=== PATIENT | female | born 1950 | race Caucasian/White ===

== ENCOUNTER 2017-05-31 06:57 | Day surgery (SDC) | payer OTHER ==
[~2017-05-31] VITALS: Ht 165.1 cm; Wt 55.4 kg
[2017-05-31] MEDS ORDERED: WARF-18 PO (07:36)
[2017-05-31] MEDS ORDERED: WARF-23 PO (07:36)
[2017-05-31 07:37] VITALS: BP 174/83; PULSE 69; RESP 18; TEMP 98.2; O2SAT 97
[2017-05-31] MEDS ORDERED: VITA10002 PO (07:37)
[2017-05-31] MEDS ORDERED: VITA100T65 PO (07:37)
[2017-05-31 09:09] LABS: BICARBONATE 28.1 MEQ/L (21.0-32.0); CALCIUM 9.2 MG/DL (8.5-10.1); CREATININE 1.11 MG/DL (0.50-1.00)
[2017-05-31] MEDS ORDERED: HEPARIN-NS/PF FLUSH BAG 1,000 ML IV FLUSH ONE (09:18)
[2017-05-31] MEDS ORDERED: ONDANSETRON HCL 4 MG/2 ML VIAL ONE (09:18)
[2017-05-31] MEDS ORDERED: MIDAZOLAM HCL 2 MG/2 ML VIAL ONE ×2 (09:18→09:33)
--- NOTE | 2017-05-31 09:18 | HHI.HP ---
History of Present Illness Chief Complaint: L LE swelling History of Present Illness 66 yo female w L LE swelling, worsening over the year. No wounds and no DVT. Past/Family/Social History Past Medical History endometriosis Past Surgical History JANI with resection of endometrial disease Social History nonsmoker Family History NC Home Medications Reported Medications Vitamin E (Vitamin E) 100 Unit Tab, 100 UNITS PO DAILY for Nutritional Supplement, TAB 0 Refills 05/31/17 Cyanocobalamin (Vitamin B-12) 1,000 Mcg Tab, 1000 MCG PO DAILY for Nutritional Supplement, #1 BOTTLE 0 Refills 05/31/17 Warfarin (Warfarin) 5 Mg Tab, 5 MG PO DAILY for Blood Clot Prevention, #30 TAB 0 Refills 05/31/17 Warfarin (Warfarin) 2.5 Mg Tab, 2.5 MG PO 2XWEEK for Blood Clot Prevention, #30 TAB 0 Refills 05/31/17 Coded Allergies: ciprofloxacin (Verified Allergy, Unknown, 05/31/17) Review of Systems Constitutional: DENIES: Diaphoretic episodes, Fatigue, Fever, Weight gain, Weight loss, Chills, Dizziness, Change in appetite, Night Sweats Cardiovascular: DENIES: Chest pain, Palpitations, Syncope, Dyspnea on Exertion , PND, Lower Extremity Edema, Orthopnea, Claudication Physical Exam Vitals/I&O Date Time Temp Pulse Resp B/P (MAP) Pulse Ox O2 Delivery O2 Flow Rate FiO2 05/31/17 07:37 98.2 69 18 174/83 (113) 97 Neuro: alert, oriented, no distress HEENT: NC/AT Neck: no JVD Heart: reg rate, no M Lungs: clear B Vascular: palpable pulses Extremities: L LE modestly swollen Laboratory Tests Test 05/31/17 07:30 Blood Urea Nitrogen 19 Creatinine 1.11 Random Glucose 89 Calcium Level 9.2 Sodium Level 141 Potassium Level 3.7 Chloride Level 105 Carbon Dioxide Level 28.1 Anion Gap 8 Estimat Glomerular Filtration Rate 49 CT A/P reviewed - potential L iliac vein stenosis Caprini VTE Risk Assessment Caprini VTE Risk Assessment: No/Low Risk (score <= 1) Caprini Risk Assessment Model Point Value = 1 Point Value = 2 Point Value = 3 Point Value = 5 Age 41-60 Minor surgery BMI > 25 kg/m2 Swollen legs Varicose veins or History of unexplained or recurrent spontaneous Oral contraceptives or hormone replacement Sepsis (< 1 month) Serious lung disease, including pneumonia (< 1 month) Abnormal pulmonary function Acute myocardial infarction Congestive heart failure (< 1 month) History of inflammatory bowel disease Medical patient at bed rest Age 61-74 Arthroscopic surgery Major open surgery (> 45 min) Laparoscopic surgery (> 45 min) Malignancy Confined to bed (> 72 hours) Immobilizing plaster cast Central venous access Age >= 75 History of VTE Family history of VTE Factor V Leiden Prothrombin [id number] Lupus anticoagulant Anticardiolipin antibodies Elevated serum homocysteine Heparin-induced thrombocytopenia Other congenital or acquired thrombophilia Stroke (< 1 month) Elective arthroplasty Hip, pelvis, or leg fracture Acute spinal cord injury (< 1 month) Prophylaxis Regimen Total Risk Factor Score Risk Level Prophylaxis Regimen 0-1 Low Early ambulation 2 Moderate Order ONE of the following: *Sequential Compression Device (SCD) *Heparin 5000 units SQ BID 3-4 Higher Order ONE of the following medications: *Heparin 5000 units SQ TID *Enoxaparin/Lovenox 40 mg SQ daily (WT < 150 kg, CrCl > 30 mL/min) *Enoxaparin/Lovenox 30 mg SQ daily (WT < 150 kg, CrCl > 10-29 mL/min) *Enoxaparin/Lovenox 30 mg SQ BID (WT < 150 kg, CrCl > 30 mL/min) AND/OR *Sequential Compression Device (SCD) 5 or more Highest Order ONE of the following medications: *Heparin 5000 units SQ TID (Preferred with Epidurals) *Enoxaparin/Lovenox 40 mg SQ daily (WT < 150 kg, CrCl > 30 mL/min) *Enoxaparin/Lovenox 30 mg SQ daily (WT < 150 kg, CrCl > 10-29 mL/min) *Enoxaparin/Lovenox 30 mg SQ BID (WT < 150 kg, CrCl > 30 mL/min) AND *Sequential Compression Device (SCD) Assessment and Plan Plan L LE venogram and potential intervention to OR Family [phone] Balbir Jacobo MD May 31, 2017 09:18
[2017-05-31] MEDS ORDERED: HEPARIN SODIUM - IV 10,000 UNITS/10 ML VIAL ONE (09:28)
[2017-05-31] MEDS ORDERED: ceFAZolin INJ 1,000 MG VIAL ONE (09:45)
--- NOTE | 2017-05-31 10:03 | HHI.PR ---
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 L iliac venogram 2. IVUS 3. Stent of L iliac vein with 20x80 Wallstent Findings: narrowing of mid CIV, successful stent Complications: none Specimen(s) removed: none Estimated blood loss: 10mL Anesthesia: MAC Drains: None Patient to: Other (DOCU) Balbir Jacobo MD May 31, 2017 10:03
[2017-05-31 13:21] VITALS: O2SAT 97
--- NOTE | 2017-06-01 12:50 | MP ---
cc: AGNIESZKA JACOBO MD DATE OF SURGERY: 05/31/2017. PREOPERATIVE DIAGNOSIS: Left leg swelling, May-Thurner syndrome. POSTOPERATIVE DIAGNOSIS: Left leg swelling, May-Thurner syndrome. OPERATIVE PROCEDURE PERFORMED: 1. Iliac venogram. 2. Intravascular ultrasound of iliac vein. 3. Stent placement of iliac vein with a 20 x 80 Wallstent. SURGEON: Agnieszka Jacobo MD. ANESTHESIA: Local with sedation. INDICATIONS FOR THE PROCEDURE: Mrs. Ortiz is a 66-year-old lady who has severe left lower extremity swelling that has been refractory over the past year. She has worn compression and preoperative imaging suggested she had iliac venous outflow obstruction suggestive of May-Thurner syndrome. She is taken to the operating room for angiographic evaluation and treatment. There are no prior catheter based images available for my review. DESCRIPTION OF THE PROCEDURE IN DETAIL: Informed consent was obtained from the patient. She was taken to the operating room and placed supine on the operating room table. An appropriate time out was taken to ensure the patient's identity, the operative site and the planned procedure. The administration of 2 grams of Ancef was initiated prior to the stent implantation to be discontinued after a single preoperative dose. Everyone in the room agreed with the time out and we proceeded. Her bilateral groins were prepped and draped and the left groin was anesthetized with 1% lidocaine. A 21-gauge micropuncture needle was used to access the left common femoral vein and this was exchanged using Seldinger technique for a micropuncture sheath and a 0.035 storq wire was introduced and the micropuncture sheath was changed to 8-Czech sheath. Iliac venogram was obtained and then the IVUS catheter was introduced. The IVUS catheter showed that the patient had a significant narrowing immediately juxtaposed to where the iliac artery crosses the iliac vein. The patient was systemically heparinized with 3000U of IV heparin. The IVUS catheter was removed. The 8-Czech sheath was removed. An 11-Czech sheath was introduced. A 20 x 80 Wallstent was then introduced and deployed without difficulty and postdilated to 18 mm. At completion, a vena cava gram showed excellent result without any recoil or extravasation and significant improvement in the opacification of the vein without any hourglass shaped stenosis in the mid common iliac vein. The wire, catheter and sheath were removed and pressure was held for hemostasis. There were no complications. I was present and scrubbed and performed the entire procedure. MD JUAN Tinoco/LASHANDA /5:02 PM /12:22 PM SONYA
== END 2017-05-31 11:45 | disposition home or self-care (01) ==
LOC: HDOC 06:57 → HDIC 06:58 → HDOC 11:45
PROVIDERS: ATTEND Surgery
DX: M79.89 Other specified soft tissue disorders (principal); I87.1 Compression of vein; I73.9 Peripheral vascular disease, unspecified
CPT/HCPCS: 36010; 37221; 37252; 75820; 75825; 80048; C1725; C1753; C1769; C1876; C1893; J0690; J1644; J2250; J2405; J3010

== ENCOUNTER 2017-08-16 08:00 | Day surgery (SDC) | payer OTHER ==
[~2017-08-16] VITALS: Ht 165.1 cm; Wt 59.4 kg
[~2017-08-16 08:00] MED LIST: VITA10002 PO; VITA100T65 PO; WARF-18 PO; WARF-23 PO
[2017-08-16] MEDS ORDERED: IOHEXOL 350 MG/ML 50 ML BTL (for Cath Lab) OTHER ONE (08:01)
[2017-08-16 08:42] VITALS: BP 168/73; PULSE 62; RESP 18; TEMP 97.6; O2SAT 99
[2017-08-16] MEDS ORDERED: SODIUM BICARBONATE 100 MEQ in D5W 1000 ML IV SCH (08:45)
[2017-08-16] MEDS ORDERED: SODIUM CHLORIDE 0.9% FLUSH 10 ML FLUSH IV FLUSH PRN (08:45)
[2017-08-16] MEDS ORDERED: SODIUM CHLORIDE 0.9% FLUSH 10 ML FLUSH IV FLUSH SCH (09:00)
[2017-08-16 09:01] LABS: CREATININE 0.92 MG/DL (0.50-1.00)
[2017-08-16] MEDS ORDERED: MIDAZOLAM HCL 2 MG/2 ML VIAL ONE (10:23)
[2017-08-16] MEDS ORDERED: HEPARIN SODIUM - IV 10,000 UNITS/10 ML VIAL ONE (10:24)
[2017-08-16] MEDS ORDERED: LIDOCAINE HCL 2% 50 ML VIAL ONE (10:26)
--- NOTE | 2017-08-16 10:48 | HHI.PR ---
cc: Balbir Jacobo MD Immediate Post Op Note Procedure Date: August 16, 2017 Pre Op Diagnosis: L LE swelling, h/o iliac vein stent Post Op Diagnosis: same, no stenosis Surgeon: Balbir Jacobo Valver(s): none Procedure: 1. U/S guided access to L popliteal vein 2. L LE venogram and IVCavagram Findings: patent FV, EIV, CIV with patent stent and no stenosis Complications: none Specimen(s) removed: none Estimated blood loss: 5mL Anesthesia: MAC Drains: None Patient to: Other (DOCU) Patient Condition: Good Implant/Devices: SEE IMPLANT LOG (if applicable) Date/Time of Procedure: SEE SURGICAL CARE RECORD Balbir Jacobo MD August 16, 2017 10:48
--- NOTE | 2017-08-16 10:48 | CATHPROC ---
[facility] HIS Report Study Information Study Number Admission Scheduled Start Study Start [id number] Aug 16 2017 8:00AM 08/16/2017 Aug 16 2017 9:31AM [place] Service Cath Endovascular Study Admit Source Facility Department Other [facility] Physician and Clinical Staff Initial Balbir Martinez Traffic Operations Manager Ranjan Swenson,RN Recorder Ina Schrader BSN Scrub Mike Martin,RT(R) Equipment Time Continuous Miner Operator Description Size Mfg Part Number Used/Scraped INTRODUCER SET, 10:25 [employer] FR 5 [id number] *[id number] Used MICROPUNCTURE STIFF [id number] 10:25 [employer] INDUSTRIES PACK, CCL CUSTOM * Used *[id number] TUBING, PRESSURE INJECTION [id number] 10:25 NAMIC PACER 72" Used 72" *[id number] 10:25 [employer] OMNIPAQUE, 300 MG, 150ML 150ML [id number] Used 10:25 [employer] OMNIPAQUE, 300 MG, 50ML 50ML [id number] Used [id number] 10:25 [employer] BL[employer],WARM AIR CCL * Used *[id number] Labs Hgb (g/dl) 11.60-17.00 Not Drawn Creatinine (mg/dl) 0.50-1.30 0.9 CPK-MB (ng/ML) 0.50-3.60 Not Drawn Medication Medication Total Dose (Bolus/Oral) Medication Total Dosage/Unit 1% XYLOCAINE 10 mL FENTANYL 50 mcg VERSED 1 mg Medications (Bolus/Oral) Medication Time Given Dosage/Unit Administered By Reason VERSED 08/16/2017 10:30:13 AM 1 mg Ranjan Swenson 1 mg VERSED given in lab by Ranjan Swenson, QUINTIN via Peripheral IV. Ordered by Balbir Jacobo. FENTANYL 08/16/2017 10:30:21 AM 25 mcg Ranjan Swenson 25 mcg FENTANYL given in lab by Ranjan Swenson RN via Peripheral IV. Ordered by Balbir Jacobo. 1% XYLOCAINE 08/16/2017 10:33:09 AM 10 mL Balbir Jacobo 20 mL 2% XYLOCAINE given in lab by Balbir Jacobo MD via Subcutaneous to Left popliteal . Ordered by Balbir Jacobo. FENTANYL 08/16/2017 10:36:40 AM 25 mcg Ranjan Swenson 25 mcg FENTANYL given in lab by Ranjan Swenson RN via Peripheral IV. Ordered by Balbir Jacobo. Medication (Drip) Medication Time Given Dosage/Unit Concentration/Unit Diluent (ml) Solution IV Solutions 08/16/2017 10:20:59 AM 0 mL (IV) D5W IV Solutions given via Peripheral IV. Pump/Drip Flow using D5W with Na Bicarb. Initial Case Assessment Cardiovascular HR Rhythm NIBP Chest Pain 96 sr 177/88 0 Edema Present Skin color Skin None Normal Warm Dry Neurological State Oriented to time-place- Alert Moves all extremities person Respiration - General Respiration Rate SpO2 (%) O2 (lpm) (B/min) 11 100 0 Final Case Assessment Cardiovascular HR Rhythm NIBP Chest Pain 81 sr 162/74 0 Edema Present Skin color Skin None Normal Warm Dry Neurological State Oriented to time-place- Alert Moves all extremities person Respiration - General Respiration Rate SpO2 (%) O2 (lpm) (B/min) 13 95 0 Chronological Log Time Study Chronological Log 10:17:43 Patient arrived via Bed. 10:19:51 Patient Name, D.O.B, / Armband Verified By R.N. 10:19:53 Consent signed by the physician and the patient and verified by the [facility] staff. 10:19:54 Pre-op and post- op instructions given; patient acknowledges understanding of instructions. 10:19:59 Patient has been NPO for More than 6Hrs. 10:20:00 Skin Breakdown-none per patient 10:20:10 Patient Warmer Placed on the Table. 10:20:11 Javier Prominences Protected 10:20:13 A # 20 IV was noted in the Antecubital (left). Grade = 0 10:20:59 IV Solutions given via Peripheral IV. Pump/Drip Flow using D5W with Na Bicarb. 10:22:02 History and physical on the chart or being dictated. 10:22:58 Reference ECG taken Vitals capture started with the following parameters, Patient=Adult, Interval=5 min, Initial Pr isdmuq=548 mmHg, 10:23:07 Deflation Rate=5 mmHg, Cuff placed on Right Ankle 10:24:14 HR=90 bpm, BJKW=227/88 mmhg, MyA4=386.0 %, Resp=10 B/min, Pain=0, Afbienne=10, Siddiqi=2 Assessment: Initial Case, HR=96 BPM, Rhythm=sr, EIAC=112/88 mmhg, Chest Pain=0, Edema=None, Col or=Normal, Skin = Warm, Dry 10:24:36 Neurological: State=Alert, Ox3, OVALLE Respiration: Resp=11 B/min, ViG2=769 %, O2=0 lpm 10:26:18 Left popliteal prepped with 2% chlorhexidine, and draped after a 3 min. waiting time. Time Out. Correct patient, correct procedure, correct physician, power injector loaded, or not loaded with contrast with 10:29:44 surgical team present. Time Out Concurred by MD and individual staff in procedure. 10:30:13 1 mg VERSED given in lab by Ranjan Swenson RN via Peripheral IV. Ordered by Balbir Jacobo . 10:30:21 25 mcg FENTANYL given in lab by Ranjan Swenson RN via Peripheral IV. Ordered by Juliette Jacobo 10:30:52 Case Start 10:31:10 FW=854 bpm, YOQA=061/78 mmhg, SpO2=99.0 %, Resp=8 B/min, Pain=0, Fabienne=10, Siddiqi=2 10:32:38 HR=74 bpm, TFIH=282/74 mmhg, SpO2=98.0 %, Resp=10 B/min, Pain=0, Fabienne=10, Siddiqi=2 20 mL 2% XYLOCAINE given in lab by Balbir Jacobo MD via Subcutaneous to Left popliteal . Order ed by Odalis 10:33:09 10:34:46 Access site was Left popliteal vein via ultrasound A INTRODUCER SET, MICROPUNCTURE STIFF FR 5 was advanced into the Popliteal L (L10) vein using t he Percutaneous 10:35:13 technique. 10:36:40 25 mcg FENTANYL given in lab by Ranjan Swenson RN via Peripheral IV. Ordered by Juliette Jacobo 10:36:57 The Popliteal L (L10) was injected with 10 cc's of contrast with ascending views to the lyndsey ac vein 10:37:41 HR=80 bpm, VPFD=190/70 mmhg, SpO2=96.0 %, Resp=11 B/min, Pain=0, Fabienne=10, Siddiqi=2 10:39:35 Sheath removed; pressure applied to access site. 10:41:05 Case End 10:41:07 No case complications noted. 10:41:08 Cine recording checked. 10:41:20 Bedside Report will be given. Assessment: Final Case, HR=81 BPM, Rhythm=sr, UQHO=309/74 mmhg, Chest Pain=0, Edema=None, Color =Normal, Skin = Warm, Dry 10:42:22 Neurological: State=Alert, Ox3, OVALLE Respiration: Resp=13 B/min, SpO2=95 %, O2=0 lpm 10:42:38 HR=82 bpm, UDWP=531/74 mmhg, SpO2=96.0 %, Resp=14 B/min, Pain=0, Fabienne=10, Siddiqi=2 10:44:58 Sterile dressing applied to site 10:47:08 [facility] - Contrast Media Used In Study Contrast Total Opened (mL) Total Used (mL) Total Wasted (mL) Omnipaque 10 10 0 End Study - Maximum Contrast Load Max Contrast Load (mL) 330.1 End Study - Radiation Exposure Fluoro Time (minutes) 0.3 End Study - Patient Disposition Complications Transferred To No [facility]
--- NOTE | 2017-08-16 11:44 | MP ---
cc: Balbir Jacobo MD DATE OF OPERATION: 08/16/2017 PREOPERATIVE DIAGNOSES: 1. Left lower extremity swelling. 2. History of left iliac vein stent. POSTOPERATIVE DIAGNOSES: 1. Left lower extremity swelling. 2. History of left iliac vein stent. PROCEDURE PERFORMED: 1. Ultrasound-guided access to the left popliteal vein. 2. Left iliac venogram and inferior vena cavogram. ATTENDING SURGEON: Balbir Jacobo MD ANESTHESIA: Local with sedation. INDICATIONS FOR PROCEDURE: Ms. Ortiz is a 66-year-old lady with left lower extremity swelling. She had a left iliac vein stent for presumed May-Thurner syndrome but this has not improved her swelling significantly and she was taken to the operating room for venographic evaluation and treatment. Intraoperatively it was found she had no stenosis of her femoral vein, common femoral vein, external iliac vein or stented common iliac vein. DESCRIPTION OF PROCEDURE: Informed consent was obtained from the patient. She was taken to the operating room and placed supine on the operating table. An appropriate timeout was taken to ensure the patient's identity, the operative site and planned procedure. The administration of antibiotics was not necessary as this was a clean procedure and would not include the implantation of any foreign object. Everyone in the room agreed with the timeout and we proceeded. She was placed prone, pressure points carefully padded. Her left popliteal fossa was prepped and draped and locally anesthetized with 1% lidocaine. Using ultrasound guidance, a 21-gauge micropuncture needle was used to access the popliteal vein. This was exchanged using Seldinger technique for a micropuncture sheath, through which a venogram was obtained. Micropuncture sheath was removed and pressure held for hemostasis. There were no complication. I was present and scrubbed and performed the entire procedure. INTERPRETATION OF IMAGES: There were no prior catheter-based imaging available for my review since nonresolution of her pain and swelling. The femoral vein, popliteal vein, external iliac vein were patent without any stenosis. The common iliac vein is stented. There is no in-stent stenosis. MD JUAN Tinoco/BLAISE , 11:23 AM , 11:43 AM
== END 2017-08-16 12:37 | disposition home or self-care (01) ==
LOC: HDOC 08:00 → HDIC 08:00 → HDOC 12:37
PROVIDERS: ATTEND Surgery
DX: I87.1 Compression of vein (principal); I48.91 Unspecified atrial fibrillation; I10 Essential (primary) hypertension
CPT/HCPCS: 75820; 82565; 99152; J1644; J2250; J3010; J7070; Q9967

== ENCOUNTER 2017-10-09 09:46 | Day surgery (SDC) | payer OTHER ==
[~2017-10-09] VITALS: Ht 165.1 cm; Wt 57.4 kg
[2017-10-09] VITALS (8 sets, daily range): BP systolic 129–158; BP diastolic 64–82; PULSE 70–90; RESP 16–20; TEMP 98.5–100; O2SAT 93–99
[~2017-10-09 09:46] MED LIST changes: -VITA10002 PO; -VITA100T65 PO; -WARF-18 PO
[2017-10-09] MEDS ORDERED: CHLORHEXIDINE GLUCONATE 2 % 1 PACK (2 CLOTHS) TOPICAL PRN (10:30)
[2017-10-09] MEDS ORDERED: SODIUM CHLORID 0.9% 500 ML INJ 500 ML IV SCH (10:30)
[2017-10-09] MEDS ORDERED: LORazepam 1 MG TAB SL SCH (10:30)
[2017-10-09] MEDS ORDERED: METOPROLOL TARTRATE 25 MG TAB PO PRN (10:30)
[2017-10-09] MEDS ORDERED: SODIUM CHLORID 0.9% 500 ML IV PRN (10:30)
[2017-10-09] MEDS ORDERED: POVIDONE IODINE 5% (ANTISEPSIS KIT) 4 APPLICATIONS EACH NARE PRN (10:30)
[2017-10-09] MEDS ORDERED: LACTATED RINGER'S 1000 ML IV PRN (10:30)
[2017-10-09 10:41] LABS: BASOPHIL % 1.1 % (0.0-2.0); EOSINOPHIL # 0.1 TH/MM3 (0-0.4); EOSINOPHIL % 2.3 % (0.0-4.0); HEMATOCRIT 40.7 % (35.0-46.0); HEMOGLOBIN 13.3 GM/DL (11.6-15.3); LYMPHOCYTE # 0.8 TH/MM3 (1.0-4.8); MEAN CELL VOLUME 84.2 FL (80.0-100.0); MEAN CORPUSCULAR HEMOGLOBIN 27.5 PG (27.0-34.0); MEAN CORPUSCULAR HGB CONC 32.7 % (32.0-36.0); MEAN PLATELET VOLUME 9.1 FL (7.0-11.0); MONO % 7.4 % (0.0-8.0); MONOCYTE # 0.2 TH/MM3 (0-0.9); NEUT % 64.2 % (16.0-70.0); PLATELET COUNT 140 TH/MM3 (150-450); RED BLOOD COUNT 4.84 MIL/MM3 (4.00-5.30); RED CELL DISTRIBUTION WIDTH 14.5 % (11.6-17.2); WHITE BLOOD COUNT 3.1 TH/MM3 (4.0-11.0)
[2017-10-09 10:45] LABS: INTERNATIONAL NORMALIZED RATIO 1.5 RATIO; PROTHROMBIN TIME - PATIENT 14.7 SEC (9.8-11.6)
[2017-10-09] MEDS ORDERED: VITATAB43 PO (10:50)
[2017-10-09] MEDS ORDERED: CHOL10008 PO (10:50)
[2017-10-09 11:06] LABS: BICARBONATE 24.8 MEQ/L (21.0-32.0); CALCIUM 9.1 MG/DL (8.5-10.1); CREATININE 0.9 MG/DL (0.50-1.00)
[2017-10-09] MEDS ORDERED: ceFAZolin 1,000 MG/NS 100 ML IV ONE ×2 (11:15)
[2017-10-09] MEDS ORDERED: MIDAZOLAM HCL 2 MG/2 ML VIAL ONE (11:49)
[2017-10-09] MEDS ORDERED: HEPARIN-D5W 25,000 U/250 ML 250 ML ONE (11:49)
[2017-10-09] MEDS ORDERED: PROTAMINE SULFATE 50 MG/5 ML VIAL ONE (11:49)
[2017-10-09] MEDS ORDERED: PHENYLEPH/NS 1000 MCG/10 ML SYR IV ONE (12:00)
[2017-10-09] MEDS ORDERED: METOPROLOL TARTRATE 5 MG/5 ML VIAL IV ONE (12:00)
[2017-10-09] MEDS ORDERED: DEXAMETHASONE SOD PHOS 4 MG/ML VIAL IV ONE (12:00)
[2017-10-09] MEDS ORDERED: ROCURONIUM INJ 50 MG/5 ML SYRINGE IV PUSH ONE (12:00)
[2017-10-09] MEDS ORDERED: GLYCOPYRROLATE 1 MG/5 ML SYRINGE IV PUSH ONE (12:00)
[2017-10-09] MEDS ORDERED: PROPOFOL 200 MG/20 ML AMP IV ONE (12:00)
[2017-10-09] MEDS ORDERED: ONDANSETRON HCL 4 MG/2 ML VIAL IV ONE (12:00)
[2017-10-09] MEDS ORDERED: NEOSTIGMINE 5 MG/5 ML SYRINGE IV PUSH ONE (12:00)
[2017-10-09] MEDS ORDERED: HEPARIN-NS/PF INJ 1,000 ML ONE (12:43)
--- NOTE | 2017-10-09 13:18 | EKG ---
Date Performed: 10/09/2017 Time Performed: 10:45:12 PTAGE: 66 years EKG: Possible ectopic atrial rhythm. Leftward axis Incomplete RBBB Possible septal HI Septal T w ave changes are nonspecific Borderline ECG NO PREVIOUS TRACING DOCTOR: Troy Houser Interpretating Date/Time 10/09/2017 13:17:42
--- NOTE | 2017-10-09 15:02 | CATHPROC ---
Patient Name: MIKE LOPEZ Study #: [id number] Initial MD: Jasvir Delaney Date of : 1950 Study Date: 10/09/2017 Cardiac Catheterization Report 10/09/2017 3:01:43 PM Financial #: [id number] 1 of 10 Patient Name: MIKE LOPEZ Study #: [id number] Initial MD: Jasvir Delaney Date of : 1950 Study Date: 10/09/2017 Entire Case Report Patient Information Patient Name MIKE LOPEZ Date of 1950 Age 66 years Financial # [id number] Gender F AlternateID Lab Number 2 Room Number DC04 Height (in) 65.0 Height (cm) 165.1 BSA 1.63 Weight (lbs) 126.5 Weight (kg) 57.5 Patient Address/Phone Number Home Address [facility] Home Phone Number 2 [facility] [address] Study Information Study Number Admission Scheduled Start Study Start [id number] Oct 09 2017 9:46AM 10/09/2017 Oct 09 2017 11:38AM [facility] Electrophysiology Study Admit Source Facility Department Other [facility] - Pharmaceutical Plant Operator Physician and Clinical Staff Initial Jasvir Dotson Mixer Attendant Paulette Taylor,RT(R) TECH2 Other Anesthesia, MACARONI MAKER Recorder Ina Schrader BSN Recorder Zahraa Sánchez,QUINTIN Recorder Ginger Smith,QUINTIN Scrub Ary Hutton,ORNAMENT STAPLER TECH2 Procedures Performed Procedure Location (Site) Vessel Name Ablation Procedure ICE CATHETER INSERT RA Atruim RF Ablation LT. ATRIUM LT. ATRIUM Equipment Time Stogy Maker Description Size Mfg Part Number Used/Scraped NEEDLE, TRANSSEPTAL NR 98 [id number] 12:50 [facility] Used C1 *[id number] 10/09/2017 3:01:43 PM Financial #: [id number] 2 of 10 Patient Name: MIKE LOPEZ Study #: [id number] Initial MD: Jasvir Delaney Date of : 1950 Study Date: 10/09/2017 [employer]/ EP [id number] 12:50 KIT, TRANSDUCER / AFIB Used PACER *[id number] CATHETER, TACTICATH ABLAT BUNDLE 12:50 [facility] Used 65 BUNDLE *[id number]- BUNDLE [id number] CATHETER, FR7 OPTIMA SPIRAL 12:50 [facility] FR7 *[id number]- Used BUNDLE BUNDLE [id number] 12:50 [facility] CATHETER, JSN, QUAD BUNDLE FR 5 *[id number]- Used BUNDLE [id number] 12:50 [facility] CATHETER, JSN, QUAD BUNDLE FR 5 *[id number]- Used BUNDLE 36978-[id number] SET, COOL POINT TUBING 12:50 [facility] *[id number]- Used BUNDLE BUNDLE SHEATH, FR8.5 STEERABLE SM 12:50 [facility] 71CM [id number] Used 71CM BUNDLE [id number] 14:42 CARD[employer] MEDICAL VASCADE, FR5 CLOSURE SYSTEM FR 5 Used *[id number] 14:39 C[employer] MEDICAL VASCADE, FR6 CLOSURE SYSTEM FR 6\\7 Used *[id number] 14:42 C[employer] MEDICAL VASCADE, FR6 CLOSURE SYSTEM FR 6\\7 Used *[id number] [id number] 14:42 C[employer]A MEDICAL VASCADE, FR6 CLOSURE SYSTEM FR 6\\7 Used *[id number] 14:42 CARDIVA MEDICAL VASCADE, FR6 CLOSURE SYSTEM FR 6\\7 Used *[id number] COVER, TRANSDUCER CABLE 612-113 12:50 [employer] Used ACUNAV *[id number] 12:50 CORDIS/PACER SHEATH, FR10 YINKA 11CM FR 10 Used *1793863 12:50 CORDIS/PACER SHEATH, FR9 YINKA 11CM FR 9 [id number] Used [id number] 12:50 MEDLINE IND[employer]ES BLANKET,WARM AIR CCL * Used *[id number] 12:50 [employer] INDUSTRIES PACK, CCL CUSTOM * Used *5836807 12:50 MEDLINE PACER RODNEY, LIMB * 2530 *[id number] Used [id number] 12:50 [facility] MEDICAL SHEATH, FR4.5 PRELUDE 11CM FR 4.5 Used [id number] 12:50 NAMIC TUBING, HIGH PRESSURE 48" 48" Used *0036085 [id number] 12:50 NAMIC TUBING, HIGH PRESSURE 48" 48" Used *3816974 [id number] 12:50 [facility] MEDICAL ELECTRODE KIT, OLIVE X SURFACE * Used *2005644 019670 13:20 [facility] MEDICAL SHEATH, EPS, FR5 FAST CATH FR 5 Used *3687684 722580 12:50 [facility] MEDICAL SHEATH, EPS, FR6 FAST CATH FR 6 Used *2384728 12:50 [facility] MEDICAL SHEATH, EPS, FR7 FAST CATH FR 7 097317 Used 316121 12:50 [facility] MEDICAL SHEATH, EPS, FR8 FAST CATH FR 8 Used *[id number] 10/09/2017 3:01:43 PM Financial #: [id number] Patient Name: MIKE LOPEZ Study #: [id number] Initial MD: Jasvir Delaney Date of : 1950 Study Date: 10/09/2017 CATHETER, ACUNAV FR10 ICE [id number] 13:29 DERRICK FR 10 Used (DERRICK) *[id number] [facility] PAD, ELECTROSURGICAL 12:50 * [id number] *[id number] Used SURGICAL GROUNDING (BLUE) Equipment Model, Serial, Lot Number and Expiration Data Description Model Number Serial Number Lot Number Expiration Date VASCADE, FR5 CLOSURE SYSTEM [id number] 07-31-2019 VASCADE, FR6 CLOSURE SYSTEM [id number] 07-11-2019 VASCADE, FR6 CLOSURE SYSTEM [id number] 07-11-2019 VASCADE, FR6 CLOSURE SYSTEM [id number] 07-11-2019 VASCADE, FR6 CLOSURE SYSTEM [id number] 07-11-2019 Insurance Information Insurance Payor Private Health Insurance Third Alliance Party Third Alliance Party Number [employer] History: Allergies Allergy Reaction ciprofloxacin History: Risk Factors Hypertension Yes Labs Hgb (g/dl) Hct (%) RBC (MIL/MM3) WBC (l/cumm) Platelets (thousands) 11.60-17.00 35.00-51.00 4.00-5.90 4.00-11.00 150.00-450.00 13.3 40.7 4.8 3.1 140 Glucose (mg/dl) BUN (mg/dl) Creatinine (mg/dl) BUN:Creatinine (1:x) 74.00-106.00 7.00-18.00 0.50-1.30 10.00-20.00 95 20 0.9 22.2 Na (meq/l) K (meq/l) 136.00-145.00 3.50-5.10 144 4.1 INR (PTT:PT) 0.90-1.10 1.5 10/09/2017 3:01:43 PM Financial #: [id number] Patient Name: MKIE LOPEZ Study #: [id number] Initial MD: Jasvir Delaney Date of : 1950 Study Date: 10/09/2017 Medication Medication Total Dose (Bolus/Oral) Medication Total Dosage/Unit 1% XYLOCAINE 40 mL HEPARIN 71639 units PROTAMINE 40 mg Medications (Bolus/Oral) Medication Time Given Dosage/Unit Administered By Reason 1% XYLOCAINE 10/09/2017 1:18:01 PM 20 mL Jasvir Delaney 20 mL 1% XYLOCAINE given in lab by Jasvir Delaney in Left Groin via Subcutaneous. 1% XYLOCAINE 10/09/2017 1:22:08 PM 20 mL Jasvir Delaney 20 mL 1% XYLOCAINE given in lab by Jasvir Delaney in Right Groin via Subcutaneous. HEPARIN 10/09/2017 1:31:22 PM 8000 units Anesthesia, MACARONI MAKER 8000 units HEPARIN given in lab by Anesthesia, MACARONI MAKER via Peripheral IV. Ordered by Jasvir Delaney. HEPARIN 10/09/2017 1:44:17 PM 2000 units Anesthesia, MACARONI MAKER 2000 units HEPARIN given in lab by Anesthesia, MACARONI MAKER via Peripheral IV. Ordered by Jasvir Delaney. PROTAMINE 10/09/2017 2:35:18 PM 40 mg Anesthesia, MACARONI MAKER As per physicians anne bal order 40 mg PROTAMINE given in lab by Anesthesia, MACARONI MAKER via Peripheral IV. Ordered by Jasvir Delaney. Reason: As per physicians verbal order. Medication (Drip) Medication Time Given Dosage/Unit Concentration/Unit Diluent (ml) Solution ISUPREL 10/09/2017 2:20:30 PM 10 mcg/min 1 mg 250 NaCl .9 10 mcg/min ISUPREL given in lab by Anesthesia, MACARONI MAKER via Peripheral IV. Pump/Drip Flow = 150 ml/hr usi ng NaCl .9 with a concentration of 1 mg in 250 ml. Ordered by Jasvir Delaney. ISUPREL DRIP STOPPED 10/09/2017 2:26:54 PM 0 units/hr 0 0 units/hr ISUPREL DRIP STOPPED given in lab by Anesthesia, MACARONI MAKER. Pump/Drip Flow = 0 ml/hr using [Phyllis ution Name]. Ordered by Jasvir Delaney. 10/09/2017 3:01:43 PM Financial #: [id number] 5 of 10 Patient Name: MIKE LOPEZ Study #: [id number] Initial MD: Jasvir Delaney Date of : 1950 Study Date: 10/09/2017 Initial Case Assessment Cardiovascular Chest Pain 0 Edema Present Skin color Skin None Normal Warm Dry Circulatory - Right Pulses Dorsalis Pedis 1 Scale (0,1,2,3,4,d) Circulatory - Left Pulses Dorsalis Pedis 1 Scale (0,1,2,3,4,d) Circulatory - Lower Extremities Color Lower Right Color Lower Left Normal Normal Neurological State Oriented to time-place- Alert Moves all extremities person Respiration - General Respiration Rate (B/min) 16 10/09/2017 3:01:43 PM Financial #: [id number] 6 of 10 Patient Name: MIKE LOPEZ Study #: [id number] Initial MD: Jasvir Delaney Date of : 1950 Study Date: 10/09/2017 Final Case Assessment Cardiovascular HR NIBP 73 130/63 Edema Present Skin color Skin None Normal Warm Dry Circulatory - Right Pulses Dorsalis Pedis 1 Scale (0,1,2,3,4,d) Circulatory - Left Pulses Dorsalis Pedis 1 Scale (0,1,2,3,4,d) Circulatory - Lower Extremities Color Lower Right Color Lower Left Normal Normal Neurological State Drowsy Moves all extremities Respiration - General Respiration Rate SpO2 (%) O2 (lpm) (B/min) 12 100 4 Chronological Log Time Study Chronological Log 12:11:46 Patient arrived via Bed. 12:11:49 Patient Name, D.O.B, / Armband Verified By R.N. 12:11:53 Consent signed by the physician and the patient and verified by the Pharmaceutical Plant Operator staff. 12:11:57 Pre-op and post- op instructions given; patient acknowledges understanding of instructions. 12:12:10 Patient has been NPO for More than 6Hrs. 12:12:15 Skin Breakdown- none per pt 12:13:20 Patient Warmer Placed on the Table. 12:13:26 Disposable Defibrillator Pads Placed On Patient. 12:13:30 Javier Prominences Protected 10/09/2017 3:01:43 PM Financial #: [id number] Patient Name: MIKE LOPZE Study #: [id number] Initial MD: Jasvir Delaney Date of : 1950 Study Date: 10/09/2017 12:13:41 History and physical on the chart or being dictated. 12:13:57 Indwelling Monteiro catheter present upon patient's arrival. ABT ALREADY ADMINISTERED BEFORE A RRIVAL 12:14:40 Anesthesia at bedside. Assumes care of patient. SEE RECORDS FOR ALL MEDS AND VITALS DURING PROCEDURE 12:15:27 Disposable defibrillator pads placed on sternum and apex. Skin integrity intact. Assessment: Initial Case, Chest Pain=0, Edema=None, Color=Normal, Skin = Warm, Dry Right Pulses: Amrik Ped=1 Left Pulses: Amrik Ped=1 12:15:45 Lower Right Extremities: Color=Normal Lower Left Extremities: Color=Normal Neurological: State=Alert, Ox3, OVALLE Respiration: Resp=16 B/min 12:15:55 Table restraints applied according to hospital policy 12:16:05 A # 20 IV was noted in the Antecubital (right). Grade = 0 0.9% NaCl @ KVO 12:16:46 A # 20 IV was noted in the Antecubital (left). Grade = 0 0.9% NaCl @ KVO 12:29:36 Anesthesiologist present for intubation 12:40:22 Bilateral groins clipped of hair. 12:44:48 Bilateral groins prepped with 2% chlorhexidine, and draped after a 3 minute waiting time. 12:49:22 A sterile drape was applied after a 3 minute prep drying time. 12:53:49 MD arrived. Time Out. Correct patient, procedure, procedure equipment, site and side verified with physicia n present. Time 13:08:36 concurred by MD, individual staff and MACARONI MAKER. Time Out #2 - Consents verified, patient in correct position, all results are labled and displa yed, safety precautions 13:08:38 taken, antibiotics administered. Time out concurred by MD, individual staff and MACARONI MAKER in procedu re 13:08:39 Case Start 13:09:06 PURA IN PROGRESS 13:17:53 PURA COMPLETE 13:18:01 20 mL 1% XYLOCAINE given in lab by Jasvir Delaney in Left Groin via Subcutaneous. 13:18:36 Vascular access was obtained in the Fem Vein (left). 13:18:40 Vascular access was obtained in the Fem Vein (left). 13:18:41 Vascular access was obtained in the Fem Vein (left). 13:18:41 Vascular access was obtained in the Fem Art (left). 13:19:46 A SHEATH, EPS, FR5 FAST CATH FR 5 was advanced into the Fem Art (left) using the Modified S eldinger technique. 13:20:57 A SHEATH, EPS, FR6 FAST CATH FR 6 was advanced into the Fem Art (left) using the Modified S eldinger technique. 13:21:17 A SHEATH, EPS, FR7 FAST CATH FR 7 was advanced into the Fem Art (left) using the Modified S eldinger technique. 13:21:20 A SHEATH, FR10 YINKA 11CM FR 10 was advanced into the Fem Art (left) using the Modified Se curtis technique. 13:22:08 20 mL 1% XYLOCAINE given in lab by Jasvir Delaney in Right Groin via Subcutaneous. 13:23:27 Vascular access was obtained in the Fem Vein (right). 13:23:29 A SHEATH, EPS, FR8 FAST CATH FR 8 was advanced into the Fem Art (right) using the Modified Seldinger technique. A CATHETER, JSN, QUAD BUNDLE FR 5 was advanced vis Fem Vein (left) and placed in the CS. Placem ent was visually 13:24:39 confirmed under fluoroscopy. TOOK OUT QUAD FOR RESHAPING, THEN REINSERTED A CATHETER, JSN, QUAD BUNDLE FR 5 was advanced vis Fem Vein (left) and placed in the HIS. Place ment was 13:28:04 visually confirmed under fluoroscopy. 13:28:39 CATHETER, ACUNAV FR10 ICE ([email or web address]) FR 10 Was Postioned. 10/09/2017 3:01:43 PM Financial #: [id number] Patient Name: MIKE LOPEZ Study #: [id number] Initial MD: Jasvir Delaney Date of : 1950 Study Date: 10/09/2017 A SHEATH, FR8.5 STEERABLE SM 71CM BUNDLE 71CM was exchanged in the Fem Vein (right). This was n ecessary in 13:31:03 order to accomodate a larger catheter. 13:31:22 8000 units HEPARIN given in lab by Anesthesia, MACARONI MAKER via Peripheral IV. Ordered by Spenser Delaney nscalexander. 13:32:01 BAYLIS NEEDLE INSERTED 13:33:22 A eps was advanced to the right atrium and passed through the septal wall to the left atriu m. 13:33:29 BAYLIS NEEDLE REMOVED A CATHETER, FR7 OPTIMA SPIRAL BUNDLE FR7 was advanced vis Fem Vein (left) and placed in the LA. Placement 13:34:10 was visually confirmed under fluoroscopy. 13:34:23 MAPPING IN PROGRESS 13:37:20 Activated Clotting Time Drawn 13:44:08 ACT (Normal Range 90-180) = 313 13:44:17 2000 units HEPARIN given in lab by Anesthesia, MACARONI MAKER via Peripheral IV. Ordered by Spenser Delaney nscy. 13:55:09 Activated Clotting Time Drawn 13:55:12 RF Ablation of the LT. ATRIUM with a CATHETER, TACTICATH ABLAT 65 BUNDLE. 14:01:14 ACT (Normal Range 90-180) = 397 14:05:23 ABLATION IN PROGRESS 14:17:06 ABLATION CATHETER OUT A CATHETER, FR7 OPTIMA SPIRAL BUNDLE FR7 was advanced vis Fem Vein (right) and placed in the LA . Placement 14:17:21 was visually confirmed under fluoroscopy. 10 mcg/min ISUPREL given in lab by Anesthesia, MACARONI MAKER via Peripheral IV. Pump/Drip Flow = 150 ml/ hr using NaCl .9 14:20:30 with a concentration of 1 mg in 250 ml. Ordered by Jasvir Delaney. 0 units/hr ISUPREL DRIP STOPPED given in lab by Anesthesia, JANESSA. Pump/Drip Flow = 0 ml/hr gayatri singer [Solution Name]. 14:26:54 Ordered by Jasvir Delaney. A SHEATH, FR9 YINKA 11CM FR 9 was exchanged in the Fem Vein (right). This was necessary in ord er to minimize 14:32:17 site leakage. 14:32:47 All catheters were removed by Dr. Delaney. 14:33:02 Case End (Physician broke scrub) 14:35:00 Ablation procedure performed: AFIB. 14:35:03 EP Procedure was performed. 40 mg PROTAMINE given in lab by JANESSA Mitchell via Peripheral IV. Ordered by Jasvir Delaney. R blake: As per 14:35:18 physicians verbal order. 14:38:21 VASCADE, FR6 CLOSURE SYSTEM FR 6\\7 placement in the Fem Vein (left) 14:39:02 VASCADE, FR6 CLOSURE SYSTEM FR 6\\7 placement in the Fem Vein (left) 14:40:50 VASCADE, FR6 CLOSURE SYSTEM FR 6\\7 placement in the Fem Vein (left) 14:41:09 VASCADE, FR6 CLOSURE SYSTEM FR 6\\7 placement in the Fem Vein (left) 14:42:11 VASCADE, FR6 CLOSURE SYSTEM FR 6\\7 placement in the Fem Vein (left) 14:49:44 No case complications noted. 14:49:46 Cine recording checked. 14:49:50 Holding Area notified of successful intervention. 14:49:53 Implantable Device card placed in patient's chart. 14:49:57 PACU called. Spoke to Saravanan 14:50:08 Bedside Report will be given. 10/09/2017 3:01:43 PM Financial #: [id number] Patient Name: MIKE LOPEZ Study #: [id number] Initial MD: Jasvir Delaney Date of : 1950 Study Date: 10/09/2017 14:56:41 DOCU called. Spoke to Caleb 14:58:00 Pt extubated by anesthesia to supplemental oxygen by NC @ 4l/min 14:59:19 Sterile dressings applied to bilateral groin sites. Assessment: Final Case, HR=73 BPM, HIRP=348/63 mmhg, Edema=None, Color=Normal, Skin = Warm, Dr y Right Pulses: Amrik Ped=1 Left Pulses: Amrik Ped=1 15:00:11 Lower Right Extremities: Color=Normal Lower Left Extremities: Color=Normal Neurological: State=Drowsy, OVALLE Respiration: Resp=12 B/min, YuP3=142 %, O2=4 lpm 15:02:40 Patient moved to stretcher. 15:03:18 Defibrillator and ground pads removed. Skin intact. 15:04:01 Pt transported to PACU with MACARONI MAKER and tech accompanying on portable O2 and monitor in stabl e condition. End Study - Contrast Media Used In Study Contrast Total Opened (mL) Total Used (mL) Total Wasted (mL) Unspecified 0 0 0 End Study - Maximum Contrast Load Max Contrast Load (mL) 319.4 End Study - Radiation Exposure Fluoro Time (minutes) 4.3 End Study - Patient Disposition Complications Transferred To No Telemetry Bed 10/09/2017 3:01:43 PM Financial #: [id number]
[2017-10-09] MEDS ORDERED: DO NOT ADM ANY ANTICOAGULANT DRUGS PRN (15:19)
[2017-10-09] MEDS: ACETAMINOPHEN 325 MG TAB PO PRN (21:54)
[2017-10-10] VITALS (16 sets, daily range): BP systolic 117–135; BP diastolic 63–74; PULSE 62–89; RESP 16–18; TEMP 98.3–98.9; O2SAT 96–100
--- NOTE | 2017-10-10 07:57 | PD.CARD.PN ---
Subjective Subjective Remarks Feeling better. Objective Medications Current Medications Medications (Trade) Dose Ordered Sig/Mario Route Start Time Stop Time Status Last Admin Sodium Chloride 500 ml @ 30 mls/hr [id number] IV 10/09/17 10:30 (Ativan) 1 mg PRODUCTION ARTIST SL 10/09/17 10:30 10/12/17 10:29 Lactated Ringer's 1,000 ml @ 30 mls/hr Q24H PRN IV 10/09/17 10:30 10/12/17 10:29 Sodium Chloride 500 ml @ 30 mls/hr [id number] PRN IV 10/09/17 10:30 10/12/17 10:29 (Lopressor) 25 mg PRODUCTION ARTIST PRN PO 10/09/17 10:30 10/12/17 10:29 (Betadine 5% Antisepsis Kit) 1 applic PRODUCTION ARTIST PRN EACH NARE 10/09/17 10:30 10/12/17 10:29 (Chlorhexidine 2% Cloth) 3 pack PRODUCTION ARTIST PRN TOPICAL 10/09/17 10:30 10/12/17 10:29 ([facility] Nursing Information) ALL NURSING DEPARTME... UNSCH PRN .XX 10/09/17 15:19 10/10/17 15:18 (Tylenol) 650 mg Q6H PRN PO 10/09/17 22:00 10/09/17 21:54 Vital Signs / I&O Vital Signs Date Time Temp Pulse Resp B/P (MAP) Pulse Ox O2 Delivery O2 Flow Rate FiO2 10/10/17 06:00 62 10/10/17 05:00 78 10/10/17 04:00 74 10/10/17 03:00 98.9 75 16 117/63 (81) 96 10/10/17 03:00 76 10/10/17 02:00 72 10/10/17 01:00 74 10/10/17 00:00 68 10/09/17 23:30 98.5 77 16 129/64 (85) 98 10/09/17 23:00 70 10/09/17 22:00 90 10/09/17 21:00 78 10/09/17 20:00 100.0 78 16 155/69 (97) 98 10/09/17 20:00 76 10/09/17 19:00 72 10/09/17 17:45 76 10/09/17 17:45 98.6 70 20 149/73 (98) 93 10/09/17 17:09 72 16 133/63 (86) 100 Nasal Cannula 2 10/09/17 16:00 65 16 140/65 (90) 100 Nasal Cannula 2 10/09/17 15:45 68 16 133/65 (87) 100 Nasal Cannula 2 10/09/17 15:30 65 16 140/57 (84) 100 Nasal Cannula 2 10/09/17 15:20 67 16 153/69 (97) 100 Nasal Cannula 2 10/09/17 15:14 97.5 69 16 149/65 (93) 100 Nasal Cannula 2 10/09/17 10:43 98.8 71 18 158/82 (107) 99 I/O 10/09/17 10/09/17 10/09/17 10/10/17 10/10/17 10/10/17 07:00 15:00 23:00 07:00 15:00 23:00 Intake Total 480 ml Output Total 300 ml 630 ml Balance -300 ml -150 ml Intake Oral 480 ml Output Urine Total 300 ml 630 ml # Bowel Movements 0 Physical Exam GENERAL: Well-nourished, well-developed patient. SKIN: Warm and dry. Groin site soft without bruising or bleeding. HEAD: Normocephalic. EYES: No scleral icterus. No injection or drainage. NECK: Supple, trachea midline. No JVD or lymphadenopathy. CARDIOVASCULAR: Regular rate and rhythm without murmurs, gallops, or rubs. RESPIRATORY: Breath sounds equal bilaterally. No accessory muscle use. GASTROINTESTINAL: Abdomen soft, non-tender, nondistended. EXTREMITIES: No cyanosis. L. leg double the size of the right, chronic, but pt. says larger than normal today. NEUROLOGICAL: Awake, alert, and oriented x 3. Non-focal. Laboratory Laboratory Tests Test 10/09/17 10:17 White Blood Count 3.1 TH/MM3 Red Blood Count 4.84 MIL/MM3 Hemoglobin 13.3 GM/DL Hematocrit 40.7 % Mean Corpuscular Volume 84.2 FL Mean Corpuscular Hemoglobin 27.5 PG Mean Corpuscular Hemoglobin Concent 32.7 % Red Cell Distribution Width 14.5 % Platelet Count 140 TH/MM3 Mean Platelet Volume 9.1 FL Neutrophils (%) (Auto) 64.2 % Lymphocytes (%) (Auto) 25.0 % Monocytes (%) (Auto) 7.4 % Eosinophils (%) (Auto) 2.3 % Basophils (%) (Auto) 1.1 % Neutrophils # (Auto) 2.0 TH/MM3 Lymphocytes # (Auto) 0.8 TH/MM3 Monocytes # (Auto) 0.2 TH/MM3 Eosinophils # (Auto) 0.1 TH/MM3 Basophils # (Auto) 0.0 TH/MM3 CBC Comment DIFF FINAL Differential Comment Prothrombin Time 14.7 SEC Prothromb Time International Ratio 1.5 RATIO Activated Partial Thromboplast Time 27.8 SEC Blood Urea Nitrogen 20 MG/DL Creatinine 0.90 MG/DL Random Glucose 95 MG/DL Calcium Level 9.1 MG/DL Sodium Level 144 MEQ/L Potassium Level 4.1 MEQ/L Chloride Level 111 MEQ/L Carbon Dioxide Level 24.8 MEQ/L Anion Gap 8 MEQ/L Estimat Glomerular Filtration Rate 63 ML/MIN Assessment and Plan Problem List: (1) Atrial fibrillation ICD Codes: I48.91 - Unspecified atrial fibrillation Plan: Normal sinus rhythm status post A. fib ablation. (2) S/P ablation of atrial fibrillation ICD Codes: Z98.890 - Other specified postprocedural states; Z86.79 - Personal history of other diseases of the circulatory system Plan: Groin site stable. Discharge home after INR resulted and if Left venous doppler is negative. Call abnormal results on INR or doppler. D/W RN, IVO. Get follow-up INR tomorrow. Continue warfarin. Follow-up with Dr. Delaney in 2 weeks per my discussion with him Problem Qualifiers (1) Atrial fibrillation: Qualified Codes: I48.91 - Unspecified atrial fibrillation Brigette Ayon Oct 10, 2017 07:57
[2017-10-10] MEDS: ACETAMINOPHEN 325 MG TAB PO PRN (08:19)
[2017-10-10 12:27] LABS: INTERNATIONAL NORMALIZED RATIO 1.5 RATIO; PROTHROMBIN TIME - PATIENT 15.4 SEC (9.8-11.6)
--- NOTE | 2017-10-10 13:02 | RADRPT ---
EXAM DATE: 10/10/2017 12:56 PM EDT AGE/SEX: 66 years / Female INDICATIONS: Left leg swelling. CLINICAL DATA: This is the patient's initial encounter. Patient reports that signs and symptoms have been present for 3 months and indicates a pain score of 0/10. MEDICAL/SURGICAL HISTORY: Hypertension. Atrial fibrillation. Chronic kidney disease. Anticoagul ant therapy, Warfarin. . Atrial ablation. COMPARISON: No prior exams available for comparison. TECHNIQUE: Venous ultrasound of both lower extremities was performed from the inguinal ligament to t he proximal calf. Real-time, color Doppler and spectral tracing, compression and augmentation techni ques were used. FINDINGS: Normal compression of the deep venous system from the inguinal region to the proximal calf . No echogenic clot is seen. Normal response of the venous system to augmentation and respiration. CONCLUSION: 1. The study is negative for lower extremity deep venous thrombosis. Electronically signed by: Steven Pascual MD 10/10/2017 1:01 PM EDT
--- NOTE | 2017-10-11 08:08 | PD.CARD ---
Atrial Fibrillation Ablation PROCEDURE DATE: Oct 08, 2017 PROCEDURES PERFORMED: 1. Electrophysiology study on Isuprel infusion 2. CS cannulation 3. 3-D mapping 4. Transseptal approach 5. Right and left heart catheterization 6. Intracardiac echo 7. Radiofrequency ablation of atrial fibrillation 8. Pulmonary vein isolation 9. Posterior wall ablation 10. Mitral valve isolation 11. Mitral line creation 12. Left atrial tachycardia ablation 13. Roof line creation 14. Floor line creation 15. Anterior wall ablation 16.Left atrial appendage isolation 16. Cardioversion INDICATIONS FOR THE PROCEDURE Ms. Ortiz is a 66-year-old female with hx of atrial fibrillation , very symptomatic, SOB, referred for electrophysiology study and ablation. The risks, the nature and the benefits of the procedure were clearly stated to her. The risks include pneumothorax, cardiac perforation, stroke, need for open heart surgery and even . The patient understood and agreed to proceed. DESCRIPTION OF THE PROCEDURE IN DETAIL As written informed consent was obtained prior to esophageal echocardiogram, the patient was kept on the table where she was prepped and draped in the usual sterile fashion. Conscious sedation was initiated and maintained throughout the procedure by the anesthesiologist. Once sedation was verified, the right and left inguinal areas were anesthetized with 2% Xylocaine. Using modified Seldinger technique, the left femoral vein was cannulated on three occasions, three guidewires were advanced. Over the wire a 6, 7 and a 10-[place] Hemaquet were advanced. Then the left femoral artery was cannulated on one occasion, one guidewire was advanced. Over the wire a 4-Ni[place]an Hemaquet was advanced. Then the right femoral vein was cannulated on one occasion, one guidewire was advanced. Over the wire a 8-Niuean Hemaquet was advanced. Then under fluoroscopic guidance through the 6 and 7-Niuean Hemaquet, two 5-Niuean Raquel curved quadripolar electrophysiology catheters were advanced and placed around the His as well as coronary sinus. Basic interval was measured. The patient was in atrial fibrillation. Through the 10-Niuean Hemaquet, a Cordis Cordero Ac[employer] intracardiac echo catheter was advanced and placed at the right atrium. Multiple view was obtained. There was no pericardial effusion, pulmonary vein was seen, atrial septal was visualized. Then the 8-Niuean Hemaquet in the right femoral vein was exchanged for Agilis transseptal sheath that was placed all the way to the superior vena cava. Through the sheath a Zach needle was advanced, then the sheath, the dilator and the needle were progressed until foci engaged. Once engaged, the needle was advanced. RF was delivered for 2 seconds. I was able to cross into the left atrium. Once the needle crossed, the dilator was advanced. Once the dilator crossed, the sheath was advanced. Once the sheath crossed, the dilator and the needle were removed. At this point I did flood the system and fluid movement was seen in the left atrium the indicates the sheath is in good position. The patient already received 10,000 units of heparin. The goal is to keep an ACT around 350 during ablation. Then through the sheath a [employer] Kike 20 pulse circumferential catheter was advanced. Using [employer] endocardial solution mapping system, a two-dimensional configuration of the left atrium was obtained. Points were taken at the left superior and inferior veins, right superior and inferior veins, mitral valve, and appendages. Then through the sheath a [employer]. Kike TactiCath 65cm 3.5mm irrigated tipped mapping and radiofrequency ablation catheter was advanced. Esophageal probe was placed temperature monitoring during ablation. When it increased to 0.5 degrees Celsius above baseline, I moved to a different area of the atrium. First I did isolate the left superior and inferior vein. Left atrial appendage was isolated , I did make a big [place] around the veins. Posterior was ablated. Mitral valve was isolated. Then a roof line was created, a floor line was created, a mitral line was isolated, then the mitral valve was isolated. At that point the patient was in left atrial tachycardia. I did create a line from the floor to the roof area, passing by the left atrial appendage. Then the right superior and inferior veins were isolated. I did remap the atrium. There is no significant signal in the atrium. At this point I decided to proceed with cardioversion. A 200 sync biphasic joule was delivered that converted the patient into sinus rhythm. At that point I did advance the circumferential catheter again into the vein. There was no signal into the vein, pacing from the vein showed no conduction to the atrium. Isuprel infusion was initiated at 10 mcg for 15 minutes. No tachyarrhythmia was induced, post Isuprel no tachyarrhythmia was induced. At that point the procedure was complete. All catheters were removed, atrial septal sheath was exchanged for 9-Niuean Hemaquet, intracardiac echo showed no pericardial effusion. There is still good flow in the pulmonary vein. The patient is going to be transferred to the recovery room. No incident report. The patient tolerated the procedure. Blood loss was minimal. FINDINGS 1. Electrocardiogram: At baseline the patient was in atrial fibrillation, post procedure the patient was in sinus rhythm. 2. Basic interval: Base cycle length was around 520. Post ablation she was around 1050 milliseconds. AH at 90 and HV at 64 milliseconds. 3. Tachyarrhythmia: Atrial fibrillation was mapped and ablated. Atrial tachycardia was ablated. The ablation was successful. CONCLUSION Successful electrophysiology study, mapping, radiofrequency ablation of atrial fibrillation, left atrial tachycardia, pulmonary vein isolation, posterior ablation, mitral valve isolation, mitral line creation, roof line creation, floor line creation, left atrial tachycardia, and cardioversion. COMMENTS AND RECOMMENDATIONS The patient is going to be transferred to the telemetry unit. Will be observed and when stable can be discharged home. Jasvir Delaney MD Oct 11, 2017 08:08
== END 2017-10-10 13:54 | disposition home or self-care (01) ==
LOC: HDOC 09:46 → HDIC 09:47 → HCIS 18:22 → HDOC 10-10 13:54
PROVIDERS: ATTEND Internal Medicine Interventional Cardiology
DX: I48.0 Paroxysmal atrial fibrillation (principal); I12.9 Hypertensive chronic kidney disease with stage 1 through stage 4 chronic kidney disease, or unspecified chronic kidney disease; N18.9 Chronic kidney disease, unspecified; Z79.01 Long term (current) use of anticoagulants
CPT/HCPCS: 00537; 80048; 85002; 85025; 85610; 85730; 86850; 86900; 86901; 93005; 93613; 93623; 93656; 93662; 93971; C1730; C1731; C1732; C1759; C1760; C1766; C2630; G0269; J0690; J1100; J1644; J2250; J2370; J2405; J2710; J2720; J3010